=== PATIENT | female | born 2000 ===

== ENCOUNTER 2023-11-23 20:42 | Inpatient (IN) | payer SELFPAY ==
[2023-11-23] VITALS (9 sets, daily range): BP systolic 102–125; BP diastolic 60–85; PULSE 68–84; TEMP 99.1
[~2023-11-23] VITALS: Ht 142.2 cm; Wt 53.2 kg
[~2023-11-23 20:42] MED LIST: PRENATAL TABLET PO
--- NOTE | 2023-11-23 20:55 | NUR ---
G1 at 39 weeks and 2 days arrives to unit with complaint of contractions every 5 minutes. Pt appears to be uncomfortable. Pt is lao speaking only, video vice president of manufacturing used, Stacey Ortega number [id number]. Pt reports leaking blood tinged fluid and reports good movement. Clean gown on. US and toco explained and applied. Vitals obtained. Admission assessment started. SVE 3/80/-3, bag of water felt on exam. Pt was evaluated on L&D early this morning by this RN, minimal cervical change noted as patient was dilated 2/80/-3 when discharged home.
--- NOTE | 2023-11-23 21:05 | NUR ---
Dr. Curiel on unit and at bedside to evaluate patient and review plan of care. SVE performed, /-3. Dr. Curiel recommends morphine rest for plan of care, video paraprofessional interpreter used to discuss with patient and family. Pt agreeable to plan.
[2023-11-23] MEDS ORDERED: Promethazine 25 MG/ML 1 ML VIAL IM ONE (21:15)
[2023-11-23] MEDS ORDERED: Morphine 10 MG/ML VIAL IM ONE (21:15)
--- NOTE | 2023-11-23 21:30 | NUR ---
Category 1 FHR tracing. Monitors off, pt up to bathroom to void.
--- NOTE | 2023-11-23 21:50 | NUR ---
18G IV started in right forearm with 1 attempt. Pt tolerated well.
--- NOTE | 2023-11-23 22:10 | NUR ---
Category 1 FHR tracing. Video language interpreter used during IM injection. Manager Of Health Jd [id number]. Morphine and phenergan injections given in left anterior thigh. Pt educated on plan to sleep and notify nursing staff if pain increases. Extra pillows and linens given to patient and spouse.
[2023-11-24] VITALS (61 sets, daily range): BP systolic 94–136; BP diastolic 51–82; PULSE 71–115; TEMP 97.9–99.4
--- NOTE | 2023-11-24 02:00 | NUR ---
Monitors off, patient up to bathroom. Pt states she has been able to rest and that she should be able to go back to sleep. Small amount of fluid noted on chux pad, amnitrace negative.
--- NOTE | 2023-11-24 05:05 | NUR ---
Dr. Curiel on unit and to bedside to evaluate patient. SVE unchanged from previous exam. Pt appears to be more comfortable. Moderate amount of green fluid noted on peripad, amnitrace negative. Verbal orders from Dr. Curiel to obtain ROM plus. Video chief of production, Lukas [id number], used during examination.
[2023-11-24] MEDS ORDERED: LR & Oxytocin 500 ML IV SCH ×2 (06:00)
[2023-11-24] MEDS ORDERED: LR 1,000 ML IV SCH (06:00)
[2023-11-24 06:25] LABS: BASO % 0.2 % (0.0-2.0); GRAN # 12.7 K/mm3 (1.4-6.5); GRAN % 86.1 % (42.2-75.2); HEMATOCRIT 41.1 % (37.0-47.0); HEMOGLOBIN 13.5 g/dl (12.5-16.0); LYMPH # 1.1 K/mm3 (1.2-3.4); LYMPH % 7.7 % (20.0-51.0); MEAN CELL VOLUME 93 fl (80.0-100.0); MEAN CORPUSCULAR HEMOGLOBIN 31 pg (27-31); MEAN CORPUSCULAR HGB CONC 33 g/dl (33.0-37.0); MEAN PLATELET VOLUME 11.8 fl (7.4-10.4); MONO # 0.8 K/mm3 (0.1-0.6); MONO % 5.5 % (1.7-9.3); PLATELET COUNT 262 K/mm3 (130-400); RED BLOOD COUNT 4.41 M/mm3 (4.10-5.30); REDCELL DISTRIBUTION WIDTH-CV 13.2 % (11.5-14.5)
--- NOTE | 2023-11-24 06:45 | NUR ---
UNABLE TO TRACE MATERNAL VS DUE TO POSITION AND HABITUS. THIS RN AT PT BEDSIDE EDUCATING PT WITH HOSPITAL WHISKEY PROOF READER ATTEMPTING TO TRACE VS AND EDUCATE PT TO STAY STILL WHEN THE BLOOD PRESSURE CUFF INFLATES.
--- NOTE | 2023-11-24 07:15 | NUR ---
PT AMBULATORY TO BATHROOM, EFM CAT 1 AND VS STABLE BEFORE DISCONNECTING. PT AWAKE AND ALERT X3
--- NOTE | 2023-11-24 07:25 | NUR ---
0718 GA URBINA AT PT BEDSIDE EDUCATING PT AND PT SPOUSE ON EPIDURAL PROCEDURE, HOSPITAL ORE MINER ASSISTING IN TRANSLATION AND QUESTIONS. 0725 GA HOME CARE RN ADMINISTERS SINGLE SHOT DOSE, PT TOLERATED WELL. PT VS STABLE, AND REPOSITIONED COMFORTABLY WEDGE LEFT. PT SPOUSE SUPPORTIVE AT BEDSIDE, PT AWAKE AND ALERT X3
[2023-11-24] MEDS ORDERED: ROPivacaine PF 0.2% 200 ML IV ONE (07:30)
[2023-11-24] MEDS ORDERED: Naloxone 0.4 MG/ML VIAL IV PRN ×2 (07:45→14:00)
[2023-11-24] MEDS ORDERED: ePHEDrine 50 MG/10 ML VIAL IV PRN (07:45)
[2023-11-24] MEDS ORDERED: diphenhydrAMINE 25 MG CAP PO PRN (07:45)
[2023-11-24] MEDS ORDERED: diphenhydrAMINE 50 MG/ML 1 ML VIAL IV PRN (07:45)
[2023-11-24] MEDS ORDERED: Ondansetron 4 MG/2 ML VIAL IV PRN (07:45)
--- NOTE | 2023-11-24 13:19 | NUR ---
1036 THIS RN SVE /-1. USING HOSPITAL RIDE ASSEMBLY SUPERVISOR THIS RN EXPLAINS AND EDUCATES PT ON COMPLETE CERVICAL EXAM, PUSHING EDUCATION, AND PLAN OF CARE FOR DELIVERY. PT VERBALLY AGREES, PT VS STABLE, FHR BASELINE 130'S, GOOD ACCELS, NO DECELS, LOF SCANT WITH BLOODY SHOW. , CHARGE NURSE, AND NURSERY NURSE NOTIFIED OF COMPLETE CERVICAL EXAM. PT REPOSITIONED IN STIRRUPS TO PUSH. 1213 RECURRENT LATE DECELERATIONS OBSERVED PER THIS RN, NOTIFIED OF PT AND FHR STATUS. 1235 AT PT BEDSIDE EXAMINING PT PROGRESS ON PUSHING. 1303 DETERMINES A VACUUM IS RECOMMENDED TO HELP PT DELIVER HER BABY. PT AND FOB AT BEDSIDE AGREES TO VACUUM DELIVERY, CHARGE NURSE AND NURSERY NURSE NOTIFIED OF DECISION. 1305 CHARGE NURSE AND NURSERY NURSE AT PT BEDSIDE. VACUUM APPLIED TO HEAD, PT CONTINUES TO PUSH WITH CONTRACTIONS. 1317 CUTS A MEDIAL EPISIOTOMY IN ADDITION TO USING VACUUM FOR DELIVERY ASSISTANCE. 1319 OF VIABLE MALE INFANT PER . STRONG SMELL NOTED PER THIS RN, CHARGE NURSE, , AND NURSERY NURSE. 1320 ONCE LIFTS BABY ABOVE MATERNAL LEGS A CORD AVULSION IS OBSERVED AND REPORTED TO ALL IN ROOM. CORD IMMEDIATELY CLAMPED AND BABY CARE IS ASSUMED BY NURSERY. 1325 OF PLACENTA AND 2ND DEGREE LACERATION REPAIR BEGUN PER . PT VS STABLE, PT AWAKE AND ALERT X3. REPORT 400QBL AND STRAIGHT CATH 150ML URINE. 1335 PT REPOSITIONED COMFORTABLY, ICE PACK APPLIED TO PERINEUM, FUNDUS FIRM AT UMBILICUS, SCANT LOCHIA, PT EXCLAIMED THROUGH HOSPITAL RIDE ASSEMBLY SUPERVISOR THAT SHE IS FEELING GOOD WITH NO PAIN. ROOM CLEANED AND SET BACK FROM DELIVERY.
[2023-11-24] MEDS ORDERED: Mag/Al Hydrox/Simeth Susp 30 ML CUP PO PRN (14:00)
[2023-11-24] MEDS ORDERED: Measles/Mumps/Rubella Virus Vaccine Live w Diluent 0.5 ML VIAL SQ SCH (14:00)
[2023-11-24] MEDS ORDERED: Witch Hazel 50% Pads Bulk TUB TP PRN (14:00)
[2023-11-24] MEDS ORDERED: Phenylephrine/Mineral Oil/Petrolatum 57 GM TUBE RC PRN (14:00)
[2023-11-24] MEDS ORDERED: Ibuprofen 600 MG TAB PO SCH (14:00)
[2023-11-24] MEDS ORDERED: oxyCODONE 5 MG TAB PO PRN (14:00)
[2023-11-24] MEDS ORDERED: Magnes Hydrox (MOM) 80 MG/ML 30 ML CUP PO PRN (14:00)
[2023-11-24] MEDS ORDERED: Gentamicin/Sodium Chloride 50 ML IV ONE ×2 (14:00→14:30)
[2023-11-24] MEDS ORDERED: Loratadine 10 MG TAB PO PRN (14:00)
[2023-11-24] MEDS ORDERED: Acetaminophen 500 MG TAB PO SCH (14:00)
[2023-11-24] MEDS ORDERED: Sennosides/Docusate 8.6-50 MG TAB PO SCH (17:00)
[2023-11-24] MEDS ORDERED: traZODone 50 MG TAB PO PRN (21:00)
[2023-11-24] MEDS ORDERED: Gentamicin/Sodium Chloride 50 ML IV SCH (22:30)
[2023-11-25 04:40] VITALS: BP 103/38; PULSE 85; TEMP 97.8
[2023-11-25 07:01] VITALS: BP 89/41; PULSE 76; TEMP 98.5
--- NOTE | 2023-11-25 09:11 | NUR ---
THIS RN GIVES REPORT TO KLARISSA
--- NOTE | 2023-11-25 09:53 | NUR ---
THIS RN ASSUMES CARE OF PT FROM JEREMIAH MOSES RN.
--- NOTE | 2023-11-25 10:43 | NUR ---
Initial visit: Czech Second Language, Family didn't understand that Aeronautical Inspector was visiting to congratulate them though they nodded "Yes" when she introduced herself, bowed briefly and offered God's blessings.
[2023-11-25 11:00] VITALS: BP 96/57; PULSE 78
--- NOTE | 2023-11-25 14:07 | NUR ---
wharf worker recieved a consult due to concerns with language barrier and verifying resources. SW spoke with RN Juani and Miri regarding pt. Juani reports she questions if pt is comprehending any information or tips related to caring for the . She has no other outright concerns, but is unsure if pt is wanting to breastfeed or not as she states she will, but has no initiative to. SW and SW Student Jess met with pt, partner, Ricardo, and used [facility] Intepreter #[id number] [place] to discuss. Pt reports she intends to work, but does not have childcare. SW inquired about nearby family or supports, and she states the FOB has family around to help. FOB states he has a work permit and does not have health insurance either. SW advised financial rep will help discuss SOBRA or Medicaid for pt and baby. Pt verified she had a crib and SW observed a carseat in the room. Partner reports they do not have enough diapers/wipes as they were not expecting baby until the 24th. He states they plan to buy some. SW felt like there was comprehension concerns at this point and began to re-word or clarify questions/statements. Pt and partner began to respond in "yes/no" responses, which often don't answer the questions. Pt replies 'yes' to bottle feed and . She states she does not have a breast pump or formula, but says 'yes' when SW asks about bottles. Partner states they are not connected with other resources or programs. SW inquired about WIC/food stamps. Partner states they are not on WIC and once SW clarified the program, they would like further information. He reports they are only on food stamps and had someone "help them out with this." SW asked about transportation and they state they do not have a car, but their friend drives them. SW asked who would take them to appointments for mom and baby, and partner states his friend could or his family when SW asked for other supports. Pt reports her family is not from here, but she gave an undecided answer which appeared to show a strained relationship. FOB reports his family is here and pt states they are a good support. Pt has no concerns with mental health and susbtance use when SW explained feelings of hopelessnes, sadness, trouble bonding, or feeling scared to take baby home. Pt did use the hand sign "so-so" when touched on scared feelings, but partner firmly stated 'no.' SW was unsure how much was correctly understood. Pt reports this is her first child which she is still deciding on a name. No other children reported in the home. Pt reports they have not been informed of follow-up appts for powder room attendant and Pediatrics. SW stated the RN will help assist with scheduling these and stated it is important to go so everyone is healing and growing well. Pt nodded her head. SW asked many times if they had more questions or needed specific resources not discussed. SW advised she will be back to bring more information/items. SW confirmed both pt and FOB cannot read or understand [place]an. SW called [facility] and spoke with the WIC program. They confirmed pt obtains benefits through [place]. It was reported that pt missed her last appointment, but SW was able to inform them pt now had the baby and would need assistance or further details in Mauritanian due to concerns with understanding all resources. SW was informed that pt is enrolled in the Maternal Child Health Program with Stacey who is familiar with pt on her case. SW spoke with Stacey who provided valuable information regarding their language. SW provided concerns regarding comprehension and accessing all resources. Stacey informs SW that Mauritanian is patient's 2nd learned language, and both individual's actually speak an Macedonian-Beaver dialect that is only regional. It cannot be accessed on the funeral pre need consultant and the name is difficult for Stacey to pass along. ALEA thanked her for this as there was concerns regarding communication. Stacey states she will see patient on 12/08/23 as she did the 'Becoming a Mom' class and Stacey felt as though pt still did not understand or have everything she needed for a baby. Stacey informs SW that they provided a pack n play and carseat to patient, but she still needs many other items. SW stated she would work on this. SW inquired about any other transportation options explored. Stacey informs SW that when pt attempted to use the [employer] Bus, she got lost and Stacey had to pick her up. She also informed SW that the bus does not go to where pt's OB appointments were. ALEA called and emailed, Stefania [phone] at [employer] to discuss getting items for mom and baby. SW provided basic demographic information to get the family enrolled. Stefania states she is familiar with Stacey at the Health Dept and can work with her directly after pt discharges to obtain more items for a longer period of time. Stefania inquired about the confirmation letter and requested this for child enrollment in their program. ALEA advised she did not yet have this, but will inform the RN to tell SW. Stefania states she can be here this afternoon to provide items for pt as transportation is a concern. ALEA met with Stefania and obtained items such as diapers, baby monitor, wipes, clothing, blankets, formula, and toiletries for the baby. Stefania informed SW that to get enrolled in their monthly diaper program, it requires further documents and conversations. She states she can speak with the [place] office when pt comes in to help go through this docuementation to get pt and baby enrolled when able. ALEA spoke with Iqra at [facility] to get more resources or items. Iqra reports she can bring items to the hospital around 12:30pm. Iqra provided diapers, wipes, clothing, diaper bag, and bottles. ALEA brought both donation boxes of items to pt's room and used the intepreter to explain. They nodded their heads and smiled at ALEA. SW asked if there was anything else they needed. Partner brought pt' [place] ID card and informed SW that pt's second last name was not on the paperwork. ALEA wrote this on the whiteboard as: Shaniqua Cheek. ALEA asked if they told the RN or financial rep. He nodded 'yes.' ALEA asked FOB to spell baby's name on the board if they decided. He wrote : Slime Joiner. SW does not know the last name. SW informed RN of the above interactions and name difference. SW informed RN of the difference in Mauritanian language and this is why there is concerns with pt not understanding as the funeral pre need consultant does not/cannot use the correct dialect to help pt and FOB understand correctly. ALEA informed financial rep for the need for a FAA to assist with pt obtaining a breast pump due to no insurance. ALEA informed Janet of the name difference as well and name of the for insurance records. ALEA informed RN Miri to call when the confirmation letter is completed. ALEA confirmed with [facility] that with a FAA they can provide a breast pump for patient. This is still pending.
[2023-11-25 16:00] VITALS: BP 116/72; PULSE 74
[2023-11-25 20:00] VITALS: BP 90/50; PULSE 78; TEMP 97.8
--- NOTE | 2023-11-25 20:00 | NUR ---
THIS RN ENTERS THE ROOM TO ASSESS THE PATIENT. THE PATIENT IS ASLEEP IN BED AND THE INFANT IS LAYING IN THE BED WITH THE PATIENT ASLEEP WELL. THIS RN EDUCATED THE PATIENT WITH A DOOR ATTENDANT, "WE DO NOT ALLOW INFANTS TO SLEEP IN BED WITH THE PARENTS, THAT IS A HOSPITAL RULE." THE PATIENT VERBALIZED UNDERSTANDING. ASSESSMENTS COMPLETED, VSS.
--- NOTE | 2023-11-26 00:45 | NUR ---
THIS RN BRINGING A BOTTLE TO THE PATIENT'S ROOM FOR TO EAT. UPON ENTRY, THE INFANT IS IN BED BETWEEN THE PATIENT AND THE FATHER OF THE BABY. AGAIN, THIS RN EDUCATED THE PATIENT THAT THE NEEDS TO BE IN THE CRIB IF THEY ARE SLEEPING. PT VERBALIZED UNDERSTANDING AGAIN.
--- NOTE | 2023-11-26 03:30 | NUR ---
ENTERED THE PATIENT'S ROOM TO TAKE A BOTTLE INTO THE ROOM. THE AGAIN IS IN BETWEEN THE PARENTS. THIS RN EXPRESSED THE CONCERNS AND AGAIN EDUCATED THE PATIENT. WHEN OFFERING THE PATIENT TO PLACE THE BABY IN THE CRIB, SHE SAYS NO.
--- NOTE | 2023-11-26 07:30 | NUR ---
BABY SLEEPING BETWEEN MOM AND DAD. REMINDED PARENTS TO PUT BABY IN CRIB WHEN MOM IS GOING TO SLEEP.
[2023-11-26] MEDS ORDERED: IBU600 MG PO (07:43)
[2023-11-26 08:10] VITALS: BP 100/60; PULSE 72; TEMP 97.7
--- NOTE | 2023-11-26 08:12 | NUR ---
Student nurse arrived to unit and entered patient room with floor nurse. Upon entering baby was sleeping in the bed in between patient and babies father. Floor nurse used detail supervisor to explain that if they are sleeping, the baby needs to be in the crib for his safety. Mom expressed understanding. Assessment performed at this time. Call light within reach upon leaving the room.
--- NOTE | 2023-11-26 09:00 | NUR ---
BABY SLEEPING BETWEEN MOM AND DAD WHEN RN WENT TO ROOM. REMINDED MOTHER TO PUT BABY IN CRIB IF SHE IS GOING TO SLEEP.
--- NOTE | 2023-11-26 13:54 | NUR ---
OB FORENSIC PHOTOGRAPHER NOTIFIED OF SOCIAL WORK REQUEST FOR A PRESCRIPTION FOR BREAST PUMP FOR PT DUE TO PT NOT HAVING INSURANCE. DELMER CORRALES STATES SHE WILL PLACE ONE AND TO NOTIFY PT THAT [facility] WHERE SHE WILL GET IT. JACQUELINE PATEL
--- NOTE | 2023-11-26 14:27 | NUR ---
smooth and burr worker composites followed up to recsamaria GUPTA from Financial Assistance team to obtain for breast pump at [facility]. Janet emailed this over. ALEA emailed it to [facility] for review. ALEA spoke with OB RN who spoke with on-call to send breast pump order. This was completed and ALEA informed JACQUELINE Delatorre that it will be delievered to patient's house due to transportation limitations. ALEA advised she notify pt of this too. ALEA retrieved confirmation letter for baby and [facility] so she can provide continued resource assistance. ALEA left a voicemail with Stacey anguiano at Maternal Child Program with [facility] Dept. in regards to SW providing resources, breast pump, and a discharge update to her. ALEA made a CPS report #[id number] regarding nursing concerns of pt and FOB not following safe sleep requests x6 times.
--- NOTE | 2023-11-26 14:35 | NUR ---
PT GIVEN BOTH WRITTEN AND VERBAL DISCHARGE INSTRUCTIONS. PT INSTRUCTED TO KEEP ALL FOLLOW UP APPOINTMENTS. PT VERBALIZES UNDERSTANDING AND HAS NO QUESTIONS AT THIS TIME.
== END 2023-11-26 14:45 | disposition home or self-care (01) | DRG 805 ==
LOC: LDRO 20:42 → LDR 11-24 05:50 → OB 11-24 22:00
PROVIDERS: Obstetrics & Gynecology; ADMIT Obstetrics & Gynecology
PROC: 10D07Z6 Extraction of Products of Conception, Vacuum, Via Natural or Artificial Opening (ICD-10-PCS; principal; 2023-11-24)
PROC: 0KQM0ZZ Repair Perineum Muscle, Open Approach (ICD-10-PCS; 2023-11-24)
DX: O99.02 Anemia complicating childbirth (principal); O41.1230 Chorioamnionitis, third trimester, not applicable or unspecified; Z37.0 Single live birth; Z3A.39 39 weeks gestation of pregnancy; O76 Abnormality in fetal heart rate and rhythm complicating labor and delivery; O70.1 Second degree perineal laceration during delivery; O69.3XX0 Labor and delivery complicated by short cord, not applicable or unspecified
CPT/HCPCS: J0290; J1580; J2270; J2405; J2550; J2590; J2795; J7120